=== PATIENT | female | born 1980 | race Caucasian/White ===

== ENCOUNTER 2017-03-26 10:51 | Outpatient (CLI) | payer BC ==
--- NOTE | 2017-03-26 11:52 | Mammography Report ---
BILATERAL DIGITAL DIAGNOSTIC MAMMOGRAM with CAD and RIGHT BREAST ULTRASOUND: 03/26/17 CLINICAL: Right breast lump felt on clinical breast exam. She denies feeling a lump. However, she does report having a spontaneous clear to milky nipple discharge. COMPARISON:None. FINDINGS: The breasts are heterogeneously dense, which may obscure small masses.No mass, architectural distortion or suspicious calcifications . No mammographic finding at a right upper outer periareolar palpable marker where the patient states that a lump was felt. Ultrasound of the right breast (including all four quadrants and the retroareolar area) was performed and demonstrated no abnormality at the palpable marker. An oval benign cyst at 9 o'clock 2 cm from the nipple measures 4 x 3 x 3 mm. No solid mass or shadowing. IMPRESSION: A 4 mm benign right breast cyst at 9 o'clock and otherwise negative right breast. Negative left breast. BI-RADS CATEGORY: 2 -- Benign RECOMMENDATION: Clinical follow-up of the palpable area and routine mammographic screening based on ACS guidelines. ACR BI-RADS MAMMOGRAPHIC CODES: 0 = Needs additional imaging evaluation; 1 = Negative; 2 = Benign; 3 = Probably benign; 4 = Suspicious; 5 = Malignant; 6 = Known biopsy-proven malignancy COMMENT: 1. Dense breast tissue, i.e., adenosis, fibrocystic changes, etc., may obscure an underlying neoplasm. 2. Approximately 10% of cancers are not detected with mammography. 3. A negative mammography report should not delay biopsy if a clinically suspicious mass is present. COMMENT: Patient follow-up letters are generated by our [employer] application.
== END 2017-03-26 10:52 | disposition home or self-care (01) ==
LOC: SPVWC 10:51
PROVIDERS: ATTEND Internal Medicine
DX: N60.01 Solitary cyst of right breast (principal); N60.11 Diffuse cystic mastopathy of right breast; N63.10 Unspecified lump in the right breast, unspecified quadrant; N64.52 Nipple discharge
CPT/HCPCS: 76641; G0204; 77066